=== PATIENT | female | born 1985 | race Two or more races ===

== ENCOUNTER 2023-06-26 11:17 | Emergency (ER) | payer OTHER ==
[~2023-06-26] VITALS: Ht 167.6 cm; Wt 99.1 kg
[2023-06-26 12:17] VITALS: BP 124/72; PULSE 96; RESP 25; TEMP 97.7; O2SAT 99
[2023-06-26] MEDS: KETOROLAC TROMETH 60MG/2ML VIAL IM ONE (12:23)
[2023-06-26 12:52] LABS: COVID19 ANTIGEN SOFIA FIA NEGATIVE (NEGATIVE); Rapid Influenza A Negative (Negative); Rapid Influenza B Negative (Negative)
[2023-06-26] MEDS ORDERED: IBUP-1454 PO (13:03)
[2023-06-26] MEDS ORDERED: ZOFR4T PO (13:03)
== END 2023-06-26 13:18 | disposition home or self-care (01) ==
LOC: ER 11:17
DX: A08.4 Viral intestinal infection, unspecified (principal); Z20.822 Contact with and (suspected) exposure to COVID-19
CPT/HCPCS: 36415; 87426; 87804; 96372; 99283; J1885